=== PATIENT | male | born 1970 | race Caucasian/White ===

== ENCOUNTER 2021-07-03 11:14 | Outpatient (REF) | payer BC, SELFPAY ==
[2021-07-03 12:04] LABS: COVID-19 Test Negative (Negative)
== END 2021-07-03 11:15 | disposition home or self-care (01) ==
LOC: HO.LAB 11:14
PROVIDERS: PCP Internal Medicine; Visit Provider Internal Medicine
DX: Z20.822 Contact with and (suspected) exposure to COVID-19 (principal)
CPT/HCPCS: 36415; 87635; C9803

== ENCOUNTER 2024-02-10 15:13 | Outpatient (AMB) | payer BC, SELFPAY ==
--- NOTE | 2024-02-10 15:16 | MHC.PC.OV ---
Vital Signs 02/10/24 15:19 Height 5 ft 7 in Weight 147 lb BMI 23.0 BP 116/70 Blood Pressure Location Rt brachial Position Sitting Pulse 60 Pulse Source Pulse Oximeter Pulse Oximetry (%) 98 Oxygen Delivery Method Room Air Intake Visit Reasons: Annual PE rashard from 12/28/23 Allergies No Known Allergies [No Known Allergies*] Allergy (Verified 02/10/24 15:19) Medication List - Last Reconciled 02/10/24 by Vesna Easley MD No Known Home Meds Tobacco use date assessed: 02/10/24 Dental Screening Dental Screen Date: 02/10/24 Did you have a dental visit in the last 12 months?: No Did you have a dental problem in the last 6 months where you did not have access to dental care?: No Was dental information given to patient?: No HPI Annual PE rashard from 12/28/23 HPI Details Patient is a 53-year-old gentleman came today for physical exam Patient is taking no medication Last year he was referred to gastroenterology for colon screening but I not see patient followed I have given telephone number of Gastroenterology office to book his own appointment Lab order placed as well to do fasting Vital signs are stable Patient has developed vitiligo on his hands which has been there for a while and is getting slightly worse Patient is complaining of having twitches around his face off and on for the past 2 months Which is causing distress. 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 [id number] - PHQ-9 Billing: Patient declined-do not bill Source: Developed by Drs. Kyrie Anaya, Esther Barr, Wilmar Mckay and colleagues, with an educational cliff from [email or web address]. Thrive Questionnaire Date Thrive assessed: 02/10/24 I am a: Patient What is your living situation today?: I have a steady place to live Within the past 12 months, did the food you bought not last and you didn't have the money to get more?: Never true Within the past 12 months, did you worry whether your food would run out before you got money to buy more?: Never true Do you have trouble paying for medicines?: No Do you have trouble getting transportation to medical appointments?: No Do you have trouble paying your heating and electricity bill?: No Do you have trouble taking care of your child, family member or friend?: No Do you have trouble with day-to-day activities such as bathing, preparing meals, shopping, managing finances, etc.?: No Are you currently unemployed and looking for a job?: No Are you interested in more education?: No Please select the resources that you would like help with: None Currently or been in a relationship where the following occur: No concerns reported THRIVE Score: 0 AUDIT C Alcohol Use Questionnaire (AUDIT-C) 1. How often do you have a drink containing alcohol?: Never 3. How often do you have six or more drinks on one occasion?: Never Total Score: 0 Score Reviewed/Action Taken: No ASHLEY-7 AMB Questionnaire ASHLEY-7 Date ASHLEY - 7 assessed: 02/10/24 Source: Developed by Drs. Kyrie Anaya, Esther Barr, Wilmar Mckay and colleagues, with an educational cliff from [email or web address]. ASHLEY-7 Assessment Billing ASHLEY-7 Assessment Tool: pt declined-do not bill Review of Systems Const Denies chills, Denies fever(s) and Denies headache(s) Eyes Denies blurry vision ENT Denies headache(s), Denies nasal discharge, Denies nasal obstruction, Denies odynophagia and Denies sinus pain Card Denies chest pain at rest and Denies chest pain with activity Resp Denies cough and Denies hemoptysis GI Denies diarrhea, Denies odynophagia, Denies vomiting and Denies hematemesis Reports as per HPI Musc Denies abnormal gait Skin/Breast Reports as per HPI Neuro Denies Neuro-related abnormal movements, Denies Abnormal speech present, Denies abnormal gait, Denies headache(s) and Denies Sensory deficit (Neuro) Psych Denies mood swings and Denies paranoia Endo Reports as per HPI Rory/Lymph Reports as per HPI Aller/Immun Reports as per HPI Physical exam (Primary Care) Vital Signs: Last Vital Signs Pulse 60 02/10/24 15:19 BP 116/70 02/10/24 15:19 Pulse Ox 98 02/10/24 15:19 Oxygen Delivery Method Room Air 02/10/24 15:19 BMI result Body Mass Index 23.0 Tobacco/Smoking Status: Tobacco use Status Tobacco use date assessed 02/10/24 02/10/24 15:21 Patient Tobacco Use Status Never used Tobacco 02/10/24 15:18 e-Cigarette/Vaping Use Never Used 02/10/24 15:18 Thrive Assessment: Date of Thrive Assessment Date Thrive assessed 02/10/24 02/10/24 15:39 Currently or been in a relationship where the following occur: No concerns reported Const General: cooperative, comfortable and no acute distress Orientation/consciousness: patient oriented x3 HENMT Head: Yes normocephalic and Yes atraumatic Eyes General: appearance normal, both eyes and all related structures Pupils: Equal, round and reactive pupils present EOM: EOMs intact bilaterally Neck Neck: Yes supple and No lymphadenopathy Thyroid: Thyroid normal Lymphatic: no lymphadenopathy noted Resp Effort & Inspection: normal respiratory effort and able to speak in complete sentences Auscultation: clear to auscultation bilaterally Cardio Heart sounds: S1 normal heart sound present and S2 normal heart sound present GI Palpation (GI): Soft to palpation and nontender Auscultation: normal bowel sounds General: Yes no CVA tenderness Back/Spine/Pelvis Back: no CVA tenderness Skin General skin exam: elasticity normal and turgor normal Neuro General: patient oriented x3 and gait normal Cranial nerves: Yes Equal, round and reactive pupils present Speech: No Abnormal speech present Sensory Exam: No Sensory deficit (Neuro) Coordination: tandem gait normal and Romberg test negative Extrem General: Yes normal exam except as noted and No edema Immunizations Boostrix Tdap 2.5 Lf unit-8 mcg-5 Lf/0.5 mL intramuscular syringe Performing Provider: Vesna Easley MD Performing Location: [facility] Administered by: TUCKER Gustafson on 02/10/24 15:37 Dose Route Admin Location Dispensed Lot Number Expiration Date NDC [employer] Attacher 0.5 mL IM Right Deltoid 0.5 mL [id number] 02/07/26 31922-210-43 [employer] VIS Given Date VIS Provided VIS Publication Date 02/10/24 Single Vaccine 21 Eligibility Eligibility Date Funding Source Not [facility] Eligible 02/10/24 Private Assessment and Plan Assessment & Plan (1) Encounter for general adult medical examination with abnormal findings: Code(s): Z00.01 - Encounter for general adult medical examination with abnormal findings (2) Facial twitching: Code(s): G51.4 - Facial myokymia (3) Vitiligo: Code(s): L80 - Vitiligo Plan Patient is a 53-year-old gentleman came today for physical exam Patient is taking no medication Last year he was referred to gastroenterology for colon screening but I not see patient followed I have given telephone number of Gastroenterology office to book his own appointment Lab order placed as well to do fasting Vital signs are stable Patient has developed vitiligo on his hands which has been there for a while and is getting slightly worse Patient is complaining of having twitches around his face off and on for the past 2 months Which is causing distress. 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 Panel Fast Today Z00.01 - Encounter for general adult medical examination with abnormal findings Lipid Panel Today Z00.01 - Encounter for general adult medical examination with abnormal findings Vitamin B12 Today G51.4 - Facial myokymia, L80 - Vitiligo Vitamin D 25-OH (D2 and D3) Today G51.4 - Facial myokymia, L80 - Vitiligo Hemoglobin A1c Today G51.4 - Facial myokymia, L80 - Vitiligo Referrals Neurology Referral G51.4 - Facial myokymia Coding Level of Care Code Est Pt Level 4 (89089) Est Pt Prev Care 40-64y(77546) Diagnoses Encounter for general adult medical examination with abnormal findings Z00.01 Facial twitching G51.4 Vitiligo L80
[2024-02-10 15:19] VITALS: BP 116/70; PULSE 60; O2SAT 98; BMI 23.0
== END 2024-02-10 15:37 | disposition home or self-care (01) ==
PROVIDERS: PCP Internal Medicine; Visit Provider Internal Medicine
DX: Z00.01 Encounter for general adult medical examination with abnormal findings (principal); G51.4 Facial myokymia; L80 Vitiligo; Z23 Encounter for immunization
CPT/HCPCS: 90471; 90715; 99214; 99396

== ENCOUNTER 2024-02-11 09:09 | Outpatient (REF) | payer BC, SELFPAY ==
[2024-02-11 10:57] LABS: MANUAL DIFF FLAG NO
[2024-02-11 11:03] LABS: Basophils Percent Auto 0.4 % (0-2); Eosinophils Absolute Auto 0.1 X10*3/uL (0.0-0.4); Eosinophils Percent Auto 1.7 % (0-4); Hematocrit 40.8 % (42.0-52.0); Hemoglobin 13.7 g/dl (14.0-18.0); Imm Gran Abs Auto 0.02 X10*3/uL (0.00-0.03); Imm Gran Pct Auto 0.3 % (0.0-0.4); Lymphocytes Percent Auto 39.5 % (20-40); Mean Corpuscular HGB Conc 33.6 g/dl (31.0-36.0); Mean Corpuscular Hemoglobin 30.2 pg (27.0-33.0); Mean Corpuscular Volume 89.9 fL (80.0-98.0); Mean Platelet Volume 9.8 fL (9.4-12.4); Monocytes Absolute Auto 0.5 X10*3/uL (0.1-1.2); Monocytes Percent Auto 6.4 % (2-11); Neutrophils Percent Auto 51.7 % (45-73); Platelet Count 208 X10*3/uL (160-400); Red Blood Count 4.54 X10*6/uL (4.60-5.80); Red Cell Distribution Width 12.3 % (11.0-16.0); White Blood Count 7.7 X10*3/uL (4.8-10.8)
[2024-02-11 11:08] LABS: Estimated Average Glucose 111 mg/dL; Hemoglobin A1c % 5.5 % (<6.0)
[2024-02-11 11:33] LABS: Alanine Aminotransferase 17 U/L (0-40); Albumin Level 4.1 g/dL (3.5-5.0); Alkaline Phosphatase 65 U/L (39-117); Anion Gap 11 (12-20); Aspartate Amino Transferase 23 U/L (5-37); Bilirubin Total 0.6 mg/dL (0.0-1.0); Blood Urea Nitrogen 11 mg/dL (9-16); Calcium 9.3 mg/dL (8.4-10.2); Carbon Dioxide 29 mmol/L (22-29); Chloride 106 mmol/L (96-108); Cholesterol 166 mg/dL (<200); Estimated Glomerular Filt Rate > 60; Glucose Fasting 95 mg/dL (60-99); HDL Cholesterol 51 mg/dL (>40); LDL Cholesterol Calculated 105 mg/dL (<100); Potassium 4.1 mmol/L (3.3-5.1); Sodium 142 mmol/L (135-145); Total Protein 7.1 g/dL (6.5-8.0); Triglycerides 53 mg/dL (<150)
[2024-02-11 11:37] LABS: TSH reflex Free T4 2.63 uIU/mL (0.32-4.0)
[2024-02-11 11:46] LABS: Vitamin B12 336 pg/mL (200-900)
[2024-02-16 12:49] LABS: Vitamin D 25-OH, D2 <4 ng/mL; Vitamin D 25-OH, D3 24 ng/mL; Vitamin D 25-OH, Total 24 ng/mL (30-100)
== END 2024-02-11 09:10 | disposition home or self-care (01) ==
LOC: HO.HMGCLDS 09:09
PROVIDERS: PCP Internal Medicine; Visit Provider Internal Medicine
DX: L80 Vitiligo (principal); G51.4 Facial myokymia; Z00.01 Encounter for general adult medical examination with abnormal findings; Z13.1 Encounter for screening for diabetes mellitus
CPT/HCPCS: 36415; 80053; 80061; 82306; 82607; 83036; 84443; 85025

== ENCOUNTER 2025-07-11 10:08 | Emergency (ER) | payer BC, SELFPAY ==
--- NOTE | ~2025-07-11 | CT_ITS ---
EXAMINATION: CT ABDOMEN AND PELVIS WITHOUT CONTRAST CLINICAL INFORMATION: Right flank pain COMPARISON: None available. TECHNIQUE: Multidetector volumetric imaging was performed from the superior aspect of the liver through the pubic symphysis. Sagittal and coronal reformatted images were obtained on the technologist's workstation. This CT examination was performed using dose optimization techniques as appropriate, variously including the following: *Automated exposure control *Adjustment of mA and/or kV according to patient size (this includes techniques or standardized protocols for targeted exams where dose is matched to indication/reason for exam; i.e. extremities or head) *Use of iterative reconstruction technique FINDINGS: LUNG BASES: The visualized lung bases are unremarkable. LIVER, GALLBLADDER, AND BILIARY TREE: The liver is normal in size, shape, and attenuation. No focal hepatic lesion or biliary ductal dilatation is present. The gallbladder is unremarkable with no evidence of radiopaque gallstones, gallbladder wall thickening, or obvious pericholecystic inflammatory changes. PANCREAS: Unremarkable. SPLEEN: Unremarkable. ADRENAL GLANDS: Unremarkable. KIDNEYS AND URETERS: There is a 2 x 4 mm stone in the mid right ureter adjacent to the lower L4 vertebral body. There is very mild hydronephrosis. No other stones are identified. BLADDER: Unremarkable. Incidental note is made of a median umbilical ligament. GASTROINTESTINAL TRACT: The small and large bowel are unremarkable. The appendix is unremarkable. ABDOMINAL WALL: No significant hernia is appreciated. LYMPH NODES: Normal. VASCULAR: Unremarkable. PELVIC VISCERA: Unremarkable OSSEOUS STRUCTURES: Moderate osteophytes are noted along the SI joints with fusion of the superior right joint. . CT/CT abdomen pelvis wo IV con IMPRESSION: There is a 2 x 4 mm stone in the mid right ureter with very minimal hydronephrosis. Mild to moderate degenerative changes are present in the SI joints with fusion of the superior right SI joint. Fleischner guidelines were followed. Electronically signed by: Ellis Kim MD 07/11/2025 01:21 PM GUNJAN
[2025-07-11 10:24] VITALS: BP 104/71; PULSE 84; RESP 16; TEMP 36.6; O2SAT 98; BMI 23.5
--- NOTE | 2025-07-11 10:25 | ED.GENADULT ---
HPI - General Adult General Chief complaint: General Medical Stated complaint: R side pain Time Seen by Provider: 07/11/25 11:26 Source: patient Mode of arrival: ambulatory Limitations: no limitations History of Present Illness ED Provider: DOTTIE FAULKNER PA-C HPI narrative: 55 year old male with no significant pmhx presents to the ED today for evaluation of right flank pain x 0900 today which began after drinking his coffee. Reports pain is constant, waxing and waning in severity. No radiation. He has not trialed anything at home for the pain. Denies abdominal pain, nausea /vomiting /diarrhea, urinary symptoms. Denies history of similar. No injury/trauma/falls. Related Data Previous Rx's ?Medication ?Instructions ?Recorded naproxen 500 mg tablet 500 mg PO BID PRN pain (scale 07/11/25 score 4-6) 2 weeks #28 tabs prednisone 20 mg tablet 20 mg PO DAILY 5 days #5 tabs 07/11/25 tamsulosin 0.4 mg capsule (Flomax) 0.4 mg PO BEDTIME 2 weeks #14 caps 07/11/25 Allergies Allergy/AdvReac Type Severity Reaction Status Date / Time No Known Allergies (No Known Allergy Verified 07/11/25 10:25 Allergies*) Review of Systems Review of Systems: Yes all other systems are reviewed and are negative PMFSH Past Medical History Attestation statement: The following information was validated with the patient. 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 Skin: Warm, dry, intact. No rashes or lesions. Head: Normocephalic, atraumatic. EENT: Hearing is intact b/l. Conjunctiva clear. PERRLA. EOM intact. Moist mucous membranes.? Cardiac: Chest wall symmetric. RRR Lungs: Normal respiratory effort without accessory muscle use. CTA bilaterally Abdomen: Soft, non-tender, non-distended. No rebound tenderness or guarding. Positive BS x4. Back: No midline spinous or paraspinal tenderness. No step off deformity. No CVA tenderness. Ext: Upper and lower extremities atraumatic, without tenderness, deformity, swelling or erythema. Full ROM throughout Neuro: AOx3. Normal speech. Ambulating with steady gait. Course Course Course Narrative: RME: 55 yold male presents to the right sided flank/abdominal pain withtout any trauma. It occurred suddenly at 9am. labs ordered Reevaluation(s) Reevaluation #1: CBC without leukocytosis, no left shift. Normocytic anemia, H and H stable when compared to priors. Chemistry without acute electrolyte abnormality requiring intervention. No KAMI. Random glucose 118, no anion gap. Liver function WNL. Lipase WNL. Urine with large blood, over [address] abdomen showing 2 x 4 mm stone to mid right ureter, very minimal hydronephrosis. > Discussed workup results with patient. Patient likely to pass stone spontaneously. Medicated with Toradol in the ED, no complaints at present. Will send naproxen, prednisone and Flomax to pharmacy. advised to f/u with urology. referral provided. Patient has remained stable throughout ED visit today. Discussed worrisome signs and symptoms and when to return to the ED. All questions answered at this time. Patient is agreeable with disposition and stable for discharge. Medications Administered Discontinued Medications Generic Name Dose Route Start Last Admin Trade Name Freq PRN Reason Stop Dose Admin Ketorolac Tromethamine 30 mg 07/11/25 11:36 07/11/25 12:01 Ketorolac Tromethamine 30 Mg/Ml Vial IM 07/11/25 11:37 Not Given ONCE ONE Medical Decision Making Medical Decision Making MDM Narrative: 55 year old male with no significant pmhx presents to the ED today for evaluation of right flank pain x 0900 today which began after drinking his coffee. vital signs stable. he is well appearing, in NAD. abdominal exam benign. Differential diagnosis includes Renal colic, nephrolithiasis, hydronephrosis, pyelonephritis, MSK sprain / strain, muscle spasm Plan for labs, UA, ct, pain control and re-evaluation. Differential Diagnosis Differential Diagnoses: The differential diagnosis associated with the presentation includes as above. Admission/Observation not indicated. Lab Data MDM Lab Attestation statement: I reviewed the patient's lab results. as above. 07/11/25 10:44 07/11/25 10:44 Labs: Lab Results 07/11/25 07/11/25 Range/Units 10:44 11:48 WBC 6.3 (4.8-10.8) X10*3/uL RBC 4.45 L (4.60-5.80) X10*6/uL Hgb 13.2 L (14.0-18.0) g/dl Hct 39.8 L (42.0-52.0) % MCV 89.4 (80.0-98.0) fL MCH 29.7 (27.0-33.0) pg MCHC 33.2 (31.0-36.0) g/dl RDW 12.3 (11.0-16.0) % Plt Count 180 (160-400) X10*3/uL MPV 8.9 L (9.4-12.4) fL Immature Gran % (Auto) 0.2 (0.0-0.4) % Neut % (Auto) 53.5 (45-73) % Lymph % (Auto) 38.6 (20-40) % [place] % (Auto) 5.8 (2-11) % Eos % (Auto) 1.4 (0-4) % Baso % (Auto) 0.5 (0-2) % Lymph # (Auto) 2.4 (1.2-4.9) X10*3/uL [place] # (Auto) 0.4 (0.1-1.2) X10*3/uL Eos # (Auto) 0.1 (0.0-0.4) X10*3/uL Baso # (Auto) 0.0 (0.0-0.2) X10*3/uL Abs Immat Gran (auto) 0.01 (0.00-0.03) X10*3/uL Absolute Neuts (auto) 3.4 (2.0-8.3) x10*3/uL Absolute Nucleated RBC 0.000 (0.0-0.012) X10*3/uL Nucleated RBC % (auto) 0.0 (0.0-0.2) /100WBC Sodium 141 (135-145) mmol/L Potassium 4.1 (3.3-5.1) mmol/L Chloride 106 (96-108) mmol/L Carbon Dioxide 31 H (22-29) mmol/L Anion Gap 8 L (12-20) BUN 14 (9-16) mg/dL Creatinine 1.02 (0.5-1.4) mg/dL Estim Creat Clear Calc 77.4 Estimated GFR > 60 Random Glucose 118 H (60-115) mg/dL Calcium 9.1 (8.4-10.2) mg/dL Total Bilirubin 0.8 (0.0-1.0) mg/dL AST 32 (5-37) U/L ALT 28 (0-40) U/L Alkaline Phosphatase 66 (39-117) U/L Total Protein 7.1 (6.5-8.0) g/dL Albumin 4.5 (3.5-5.0) g/dL Lipase 29 (8-78) U/L Urine Color Yellow Urine Appearance Clear Urine pH 5.5 (5.0-9.0) Ur Specific [place] 1.020 (1.005-1.025) Urine Protein Trace (Neg-Trace) mg/dL Urine Glucose (UA) Negative (Negative) mg/dL Urine Ketones Trace (Negative) mg/dL Urine Blood Large (3+) H (Negative) Urine Nitrite Negative (Negative) Ur Leukocyte Esterase Negative (Negative) Urine RBC >20 H (0-2) /HPF Urine WBC 0-5 (0-5) /HPF Ur Squamous Epith Cells 0-2 (0-2) /HPF Urine Bacteria None Seen (None Seen) Hyaline Casts 0-2 (0-2) /LPF Independent Interpretation I performed an independent interpretation of an: CT Scan Interpretation: CT a/p showing right ureteral stone Radiology Impression Discussion of test interpretation with radiology: I have reviewed the radiologist's reading. Radiologist Impression: Procedure(s): CT abdomen pelvis wo IV con Accession Number(s): [id number] cc: Vesna Easley MD; Dottie Faulkner~ Report Number: [id number]: Total DLP = 388.00 mGy-cm Reason for Exam: right flank pain EXAMINATION: CT ABDOMEN AND PELVIS WITHOUT CONTRAST CLINICAL INFORMATION: Right flank pain COMPARISON: None available. TECHNIQUE: Multidetector volumetric imaging was performed from the superior aspect of the liver through the pubic symphysis. Sagittal and coronal reformatted images were obtained on the technologist's workstation. This CT examination was performed using dose optimization techniques as appropriate, variously including the following: *Automated exposure control *Adjustment of mA and/or kV according to patient size (this includes techniques or standardized protocols for targeted exams where dose is matched to indication/reason for exam; i.e. extremities or head) *Use of iterative reconstruction technique FINDINGS: LUNG BASES: The visualized lung bases are unremarkable. LIVER, GALLBLADDER, AND BILIARY TREE: The liver is normal in size, shape, and attenuation. No focal hepatic lesion or biliary ductal dilatation is present. The gallbladder is unremarkable with no evidence of radiopaque gallstones, gallbladder wall thickening, or obvious pericholecystic inflammatory changes. PANCREAS: Unremarkable. SPLEEN: Unremarkable. ADRENAL GLANDS: Unremarkable. KIDNEYS AND URETERS: There is a 2 x 4 mm stone in the mid right ureter adjacent to the lower L4 vertebral body. There is very mild hydronephrosis. No other stones are identified. BLADDER: Unremarkable. Incidental note is made of a median umbilical ligament. GASTROINTESTINAL TRACT: The small and large bowel are unremarkable. The appendix is unremarkable. ABDOMINAL WALL: No significant hernia is appreciated. LYMPH NODES: Normal. VASCULAR: Unremarkable. PELVIC VISCERA: Unremarkable OSSEOUS STRUCTURES: Moderate osteophytes are noted along the SI joints with fusion of the superior right joint. . CT/CT abdomen pelvis wo IV con IMPRESSION: There is a 2 x 4 mm stone in the mid right ureter with very minimal hydronephrosis. Mild to moderate degenerative changes are present in the SI joints with fusion of the superior right SI joint. Fleischner guidelines were followed. Electronically signed by: Ellis Kim MD 07/11/2025 01:21 PM GUNJAN External Record Review External record reviewed: Inpatient record Prescription Management I considered prescription management with: Pain Medication and Other (prednisone, flomax) Social Determinants Patient?s care significantly limited by Social Determinants of Health including: Other Social Determinant of Health Critical Care Time Critical Care Time Critical Care Time: No Discharge Plan Discharge Clinical Impression: Calculus of right ureter Patient Disposition: Home, Self-Care Instructions: Low Oxalate Diet (ED), Ureteral Stones (ED) Additional Instructions: You were evaluated in the ED today for right flank pain. Your blood work is reassuring. Your urine demonstrates minimal blood, no infection. The CT scan of your abdomen shows a 2 x 4 mm stone in your right ureter. You should be able to pass this without surgical intervention. I am starting you on prednisone (a steroid) for you to take over the next 5 days. This will help with associated inflammation around the ureter. I recommend NSAIDs for pain control - I am sending naproxen to the pharmacy. Take this as needed for pain. I am also sending Flomax, a medication that will help flush the stones out. Take this before you go to bed at night as this may drop your blood pressure with standing. Follow up with urology - I have provided you with a referral. Call them to establish care, they will not call you. Return with any new/ worsening symptoms. In the case of an emergency call 911. Prescriptions: New naproxen 500 mg tablet 500 mg PO BID PRN (Reason: pain (scale score 4-6)) 14 Days Qty: 28 0RF tamsulosin [Flomax] 0.4 mg capsule 0.4 mg PO BEDTIME 14 Days Qty: 14 0RF prednisone 20 mg tablet 20 mg PO DAILY 5 Days Qty: 5 0RF Referrals: [facility] [Provider Group, Urology] Vesna Easley MD [Primary Care Provider, Internal Medicine] Stand Alone Forms: Work/School Release Interventions: ED Discharge Assessment Last Done: 07/11/25 14:48 Discharge Date/Time: 07/11/25 14:49 Print Language: Greenlandic
[2025-07-11 10:48] LABS: MANUAL DIFF FLAG NO
[2025-07-11 10:52] LABS: Hematocrit 39.8 % (42.0-52.0); Hemoglobin 13.2 g/dl (14.0-18.0); Imm Gran Abs Auto 0.01 X10*3/uL (0.00-0.03); Imm Gran Pct Auto 0.2 % (0.0-0.4); Lymphocytes Absolute Auto 2.4 X10*3/uL (1.2-4.9); Mean Corpuscular HGB Conc 33.2 g/dl (31.0-36.0); Mean Corpuscular Hemoglobin 29.7 pg (27.0-33.0); Mean Corpuscular Volume 89.4 fL (80.0-98.0); NRBC Abs Auto 0.000 X10*3/uL (0.0-0.012); NRBC Pct Auto 0.0 /100WBC (0.0-0.2); Platelet Count 180 X10*3/uL (160-400); Red Blood Count 4.45 X10*6/uL (4.60-5.80); White Blood Count 6.3 X10*3/uL (4.8-10.8)
[2025-07-11 11:10] LABS: Alanine Aminotransferase 28 U/L (0-40); Albumin Level 4.5 g/dL (3.5-5.0); Alkaline Phosphatase 66 U/L (39-117); Anion Gap 8 (12-20); Aspartate Amino Transferase 32 U/L (5-37); Blood Urea Nitrogen 14 mg/dL (9-16); Calcium 9.1 mg/dL (8.4-10.2); Carbon Dioxide 31 mmol/L (22-29); Chloride 106 mmol/L (96-108); Creatinine Clr Calc Pharmacy 77.4; Estimated Glomerular Filt Rate > 60; Lipase 29 U/L (8-78); Potassium 4.1 mmol/L (3.3-5.1); Sodium 141 mmol/L (135-145); Total Protein 7.1 g/dL (6.5-8.0)
[2025-07-11 11:55] LABS: Appearance Urine Clear; Glucose Urine UA Negative (Negative); PH 5.5 (5.0-9.0); Specific Gravity - Urine 1.020 (1.005-1.025); UMIC TRIGGER UACC YES
[2025-07-11 14:48] VITALS: BP 101/69; PULSE 89; RESP 16; TEMP 36.4; O2SAT 99
== END 2025-07-11 14:49 | disposition home or self-care (01) ==
PROVIDERS: Physician Assistant; Emergency Provider Emergency Medicine; PCP Internal Medicine
DX: N20.1 Calculus of ureter (principal); R10.A1 Flank pain, right side
CPT/HCPCS: 36415; 74176; 80053; 81001; 83690; 85025; 96372; 99282; 99284

== ENCOUNTER → 2025-07-11 12:03 | Outpatient (BNV) | payer BC, SELFPAY | PROVIDERS: Emergency Provider Emergency Medicine; PCP Internal Medicine; Visit Provider Radiology Diagnostic Radiology | DX: N20.1 Calculus of ureter (principal); M47.818 Spondylosis without myelopathy or radiculopathy, sacral and sacrococcygeal region; M43.28 Fusion of spine, sacral and sacrococcygeal region | CPT/HCPCS: 74176 ==